=== PATIENT | female | born 1990 | race American Indian/Alaskan Native ===

== ENCOUNTER 2017-02-13 14:55 | Emergency (ER) | payer MEDICAID | END 2017-02-13 15:11 | disposition left against medical advice (07) | LOC: ED 14:55 | DX: R07.9 Chest pain, unspecified (principal); M54.9 Dorsalgia, unspecified; Z53.21 Procedure and treatment not carried out due to patient leaving prior to being seen by health care provider ==

== ENCOUNTER 2018-07-14 21:17 | Outpatient (CLI) | payer BC, MEDICAID ==
[2018-07-14 21:43] VITALS: BP 110/70
[2018-07-14] MEDS ORDERED: LACTATED RINGERS 1,000 ML IV ONE (22:18)
[2018-07-14] MEDS ORDERED: LACTATED RINGERS 500 ML IV SCH (23:00)
[2018-07-14 23:08] LABS: Bacteria,Urine 1+ /HPF (Negative); Bilirubin,Urine NEG (Negative); Blood,Urine NEG (Negative); Color,Urine Yellow (Yellow); Mucus,Urine FEW /HPF; Protein,Urine <15 mg/dL mg/dL (Negative)
--- NOTE | 2018-07-14 23:44 | Ultrasound Report ---
PROCEDURE: US OB LIMITED TECHNIQUE: Real-time limited sonographic examination was performed for evaluation of amniotic fluid index for each fetus with image documentation (1 or more fetuses). HISTORY: decrease movement COMPARISONS: None . FINDINGS: FETUS IUP: Single living intrauterine . Position: Cephalic . Placental position: Anterior, without previa . Amniotic fluid volume: Normal. Amniotic fluid index is 11.1 cm Heart rate and rhythm: 152 BPM, Regular . IMPRESSION: Amniotic fluid is within normal limits. This document is electronically signed by Joaquín Bauer MD., July 15 2018 12:42:24 AM ET
--- NOTE | 2018-07-14 23:45 | Ultrasound Report ---
PROCEDURE: US OB BPP WO NON-STRESS TECHNIQUE: Sonographic evaluation for breathing, movement, tone, and amniotic flui d volume was performed. HISTORY: decrease movement COMPARISONS: None . FINDINGS: FETUS Amniotic fluid volume Normal-score 2. At least one vertical pocket >2 cm or more in vertical axis . breathing: Normal-score 2 . movement: Normal-score 2 . tone: Normal-score 2 . Score: 8 of 8 . heart rate is 152 bpm IMPRESSION: Normal biophysical profile . This document is electronically signed by Joaquín Bauer MD., July 15 2018 12:43:05 AM ET
== END 2018-07-14 23:45 | disposition home or self-care (01) ==
LOC: TRG 21:17
PROVIDERS: ATTEND Obstetrics & Gynecology
DX: O47.03 False labor before 37 completed weeks of gestation, third trimester (principal); Z3A.35 35 weeks gestation of pregnancy
CPT/HCPCS: 59025; 76815; 76819; 81001; 87086

== ENCOUNTER 2018-08-10 20:04 | Outpatient (CLI) | payer BC, MEDICAID ==
[2018-08-10 20:28] VITALS: BP 118/68
--- NOTE | 2018-08-11 00:54 | Ultrasound Report ---
PROCEDURE: Limited obstetrical ultrasound. TECHNIQUE: Limited transabdominal imaging was performed. HISTORY: , evaluate amniotic fluid volume. COMPARISONS: Limited abdominal ultrasound 07/14/2018. FINDINGS: There is a single viable fetus in cephalic presentation. Cardiac activity is documented at 150 bpm. T he amniotic fluid volume appears normal. The amniotic fluid index measures 16.8 cm. IMPRESSION: Normal appearing amniotic fluid volume. Viable fetus. This document is electronically signed by Ambrose Mcdowell MD., August 11 2018 12:52:15 AM ET
--- NOTE | 2018-08-11 00:55 | Ultrasound Report ---
PROCEDURE: Ultrasound biophysical profile without nonstress test. TECHNIQUE: Sonographic evaluation for breathing, movement, tone, and amniotic flui d volume was performed. HISTORY: BPP COMPARISONS: None. FINDINGS: FETUS Amniotic fluid volume 2 . breathin . movement: 2 . tone: 2 . Score: 8 of 8 . IMPRESSION: Normal biophysical profile . This document is electronically signed by Ambrose Mcdowell MD., August 11 2018 12:53:51 AM ET
--- NOTE | 2018-08-11 06:11 | Progress Note ---
Assessment and Plan A: at 39 3/7 weeks gestation. Not in active labor. Reactive NST and normal BPP and normal JAMA. P: Discharge patient home. Advised pt. to perform daily movement counting. Advised patient to keep her follow up appointment at [facility] this week. Subjective - Subjective Date of service: 08/10/18 Principal diagnosis: Vaginal pressure; rule out labor at 39 3/7 weeks Interval history: 28 year old female presents to L&D with complaint of intermittent vaginal pressure and occasional contractions. Patient denies vaginal bleeding or leaking of water. Patient reports active movement. Patient receives care at [facility] and states she has a follow up appointment scheduled for this week. Patient reports: movement normal, contractions, no loss of fluid, no vaginal bleeding Objective - Vital Signs Vital Signs: Vital Signs - 12hr 08/10/18 08/10/18 08/10/18 20:25 20:28 20:33 Temperature 98.5 F Pulse Rate 97 H 99 H 90 Respiratory 18 Rate Blood Pressure 118/68 [Left] O2 Sat by Pulse 97 96 97 Oximetry 08/10/18 08/10/18 23:49 23:54 Temperature Pulse Rate 98 H 90 Respiratory Rate Blood Pressure [Left] O2 Sat by Pulse 100 96 Oximetry - Exam Narrative Exam: Normal JAMA. BPP 8/8. Abdomen: Present: normal appearance, soft. Absent: distention, tenderness, guarding, rigidity Uterus: Present: normal, fundal height above umbilicus. Absent: tenderness FHR: category 1 Uterine Contraction Monitor Mode: External Cervical Dilatation: 0.5 Cervical Effacement Percentage: 50 station: 0 Uterine Contraction Pattern: Irregular Uterine Contraction Intensity: Mild Extremities: normal
== END 2018-08-10 23:00 | disposition home or self-care (01) ==
LOC: TRG 20:04
PROVIDERS: ATTEND Obstetrics & Gynecology
DX: O26.893 Other specified pregnancy related conditions, third trimester (principal); R10.2 Pelvic and perineal pain; Z3A.39 39 weeks gestation of pregnancy
CPT/HCPCS: 76815; 76819

== ENCOUNTER 2018-08-17 13:10 | Inpatient (IN) | payer BC, MEDICAID ==
--- NOTE | 2018-08-17 15:43 | Ultrasound Report ---
Limited biophysical profile ultrasound HISTORY: BPP. Evaluate well-being. TECHNIQUE: Grayscale and color Doppler imaging performed. COMPARISON: 08/10/2018 FINDINGS: The fetus received a score of 2 for breathing, movements, posterior, and JAMA. Total score was 8 out of 8. IMPRESSION: Normal biophysical profile. Signer Name: Roman Marrufo MD Signed: 08/17/2018 3:39 PM Workstation Name: [id number]
--- NOTE | 2018-08-17 15:52 | Ultrasound Report ---
Limited OB Ultrasound HISTORY: JAMA. Patient reportedly beyond her due date, here to evaluate JAMA TECHNIQUE: Grayscale and color Doppler imaging performed. COMPARISON: BPP from today FINDINGS: Four quadrants were evaluated. The JAMA is 9.5. Aside from the limited BPP, the fetus was not at all evaluated. IMPRESSION: JAMA of 9.5 on this very limited exam. Signer Name: Roman Marrufo MD Signed: 08/17/2018 3:48 PM Workstation Name: [id number]
[2018-08-17] MEDS ORDERED: BRETHINE SUB-Q PRN (18:41)
[2018-08-17] MEDS ORDERED: XYLOCAINE 2% INFILTRATI ONE ×2 (18:41→20:58)
--- NOTE | 2018-08-17 18:51 | History and Physical Report ---
History of Present Illness Date of examination: 08/17/18 Date of admission: 08/17/18 16:43 Chief complaint: Contractions History of present illness: 28 year old female presents to L&D with contractions. Patient denies leaking of fluid or vaginal bleeding. Patient reports decrease in movements for the past 2 days. Patient received care from [facility] and records are available. LMP 11/08/17. EDC 08/15/18. 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 labs are as follows: A+, antibody screen negative, rubella immune, RPR nonreactive, hepatitis B surface antigen negative, HIV negative, gonorrhea negative, chlamydia negative, trichomonas negative, quad screen negative, 1 hour sugar test 109, GBS negative. Past History Past Medical History: no pertinent history Past Surgical History: no surgical history [employer] History: herpes. denies: abnormal PAP smear, chlamydia, gonorrhea, hepatitis B, hepatitis C, HIV, syphilis, trichomonas Family/Genetic History: hypertension, other (migraine) Social history: single, lives with family, full code. denies: smoking, alcohol abuse, prescription drug abuse, IV drug use - Obstetrical History Expected Date of Delivery: 08/15/18 Actual Gestation: 40 Week(s) 2 Day(s) : 4 Para: 2 Hx # Term Pregnancies: 2 Number of Pregnancies: 0 Spontaneous Abortions: 1 Induced : 0 Number of Living Children: 2 Medications and Allergies Allergies Allergy/AdvReac Type Severity Reaction Status Date / Time No Known Allergies Allergy Unverified 09/01/15 21:21 Home Medications Medication Instructions Recorded Confirmed Last Taken Type valACYclovir [Valtrex] 1 tab PO DAILY 08/10/18 08/10/18 08/10/18 History One Daily Tablet 1 PO QDAY 08/17/18 08/17/18 18:43 History Review of Systems All systems: negative (contractions) - Vital Signs Vital signs: Vital Signs Pulse BP 93 H 112/70 08/17/18 13:30 08/17/18 13:30 Temp Pulse Resp BP Pulse Ox 97.0 F L 86 115/69 08/17/18 17:41 08/17/18 17:41 08/17/18 17:35 - Physical Exam Abdomen: Positive: normal appearance, soft. Negative: distention, tenderness, guarding, rigidity Genitourinary (Female): Positive: normal external genitalia, normal perenium. Negative: perineal/vulvar lesions Vagina: Positive: normal moisture Uterus: Positive: enlarged. Negative: tender Anus/Rectum: Positive: normal perianal skin Extremities: Positive: normal. Negative: tenderness, edema - Obstetrical FHR: category 1 Uterine Contraction Monitor Mode: External Cervical Dilatation: 4.5 Cervical Effacement Percentage: 70 station: -1 Uterine Contraction Pattern: Regular Uterine Contraction Intensity: Mild Results All other labs normal. Assessment and Plan A: at 40 weeks, 2 days gestation. Labor. GBS negative. HSV 2 positive serology (with no lesions or prodromal symptoms). P: Admit. EFM. Continue Valtrex suppression of HSV.
[2018-08-17 18:56] LABS: Hematocrit 32.5 % (30.3-42.9); Hemoglobin 11.3 gm/dl (10.1-14.3); Mean Corpuscular HGB Conc 35 % (30-34); Mean Corpuscular Volume 91 fl (79-97); Platelet Count 172 K/mm3 (140-440); Red Blood Count 3.55 M/mm3 (3.65-5.03); Red Cell Distribution Width 15.1 % (13.2-15.2)
[2018-08-17] MEDS ORDERED: PITOCin/NS 20 UNIT/1000ML DRIP 20 UNITS/1,000 ML BAG IV SCH (19:00)
[2018-08-17] MEDS ORDERED: PITOCin/NS 30 UNIT/500ML 30 UNITS/500 ML BAG IV SCH ×2 (21:00)
[2018-08-17] MEDS: LACTATED RINGERS 1,000 ML IV SCH (21:27)
[2018-08-17] MEDS: VALTREX PO SCH (22:00)
[2018-08-17] MEDS: SUBLIMAZE IV PRN (23:16)
[2018-08-18] MEDS: LACTATED RINGERS 1,000 ML IV SCH ×4 (05:01→12:54)
[2018-08-18] MEDS: SUBLIMAZE IV PRN (09:27)
[2018-08-18] MEDS: VALTREX PO SCH (09:27)
--- NOTE | 2018-08-18 12:23 | Anesthesia Consultation ---
Anesthesia Consult and Med Hx Date of service: 08/18/18 - Airway Anesthetic Teeth Evaluation: Good ROM Head & Neck: Adequate Mental/Hyoid Distance: Adequate Mallampati Class: Class II Intubation Access Assessment: Probably Good - Pre-Operative Health Status ASA Pre-Surgery Classification: ASA2 Proposed Anesthetic Plan: Epidural, Spinal - Pulmonary Hx Asthma: No COPD: No Hx Pneumonia: No - Cardiovascular System Hx Hypertension: No - Central Nervous System Hx Seizures: No Hx Psychiatric Problems: No - Endocrine Hx Renal Disease: No Hx End Stage Renal Disease: No Hx Hypothyroidism: No Hx Hyperthyroidism: No - Hematic Hx Anemia: No Hx Sickle Cell Disease: No - Other Systems Hx Alcohol Use: No
[2018-08-18] MEDS ORDERED: fentaNYL-BUPIV 2 MCG/ML-0.125% 200 MCG/100 ML BAG EPIDURAL SCH (13:00)
[2018-08-18] MEDS ORDERED: NARCAN 2 MG/2 ML IV PRN (13:00)
--- NOTE | 2018-08-18 14:04 | Progress Note ---
Assessment and Plan - Patient Problems (1) 40 weeks gestation of Current Visit: Yes Status: Acute (2) Active labor at term Current Visit: Yes Status: Acute Plan to address problem: Continue current management Continue oxytocin for labor augmentation AROM @ 13:55, clear fluid, small amount Subjective - Subjective Date of service: 08/18/18 Principal diagnosis: IUP @ 40 weeks 3 days; Active Labor Interval history: see H&P Patient reports: movement normal, contractions, other (Epidural in place), no loss of fluid, no vaginal bleeding Objective - Vital Signs Vital Signs: Vital Signs - 12hr 08/18/18 08/18/18 08/18/18 02:02 02:32 03:01 Temperature Pulse Rate 89 76 71 Respiratory Rate Blood Pressure 108/63 104/60 Blood Pressure [Right] O2 Sat by Pulse 97 Oximetry 08/18/18 08/18/18 08/18/18 03:04 03:06 03:11 Temperature Pulse Rate 67 71 75 Respiratory Rate Blood Pressure 98/53 Blood Pressure [Right] O2 Sat by Pulse 96 97 Oximetry 08/18/18 08/18/18 08/18/18 03:16 03:21 03:26 Temperature Pulse Rate 75 75 70 Respiratory Rate Blood Pressure Blood Pressure [Right] O2 Sat by Pulse 96 96 96 Oximetry 08/18/18 08/18/18 08/18/18 03:31 03:32 03:36 Temperature Pulse Rate 84 80 72 Respiratory Rate Blood Pressure 94/52 Blood Pressure [Right] O2 Sat by Pulse 96 95 Oximetry 08/18/18 08/18/18 08/18/18 03:41 03:46 03:51 Temperature Pulse Rate 77 75 74 Respiratory Rate Blood Pressure Blood Pressure [Right] O2 Sat by Pulse 95 95 96 Oximetry 08/18/18 08/18/18 08/18/18 03:56 04:01 04:02 Temperature Pulse Rate 72 80 77 Respiratory Rate Blood Pressure 97/55 Blood Pressure [Right] O2 Sat by Pulse 95 95 Oximetry 08/18/18 08/18/18 08/18/18 04:06 04:11 04:13 Temperature Pulse Rate 69 81 77 Respiratory Rate Blood Pressure Blood Pressure [Right] O2 Sat by Pulse 96 95 94 Oximetry 08/18/18 08/18/18 08/18/18 04:16 04:19 04:21 Temperature Pulse Rate 74 67 74 Respiratory Rate Blood Pressure Blood Pressure [Right] O2 Sat by Pulse 95 94 94 Oximetry 08/18/18 08/18/18 08/18/18 04:24 04:26 04:29 Temperature Pulse Rate 85 77 85 Respiratory Rate Blood Pressure Blood Pressure [Right] O2 Sat by Pulse 94 94 94 Oximetry 08/18/18 08/18/18 08/18/18 04:31 04:33 04:35 Temperature Pulse Rate 72 78 82 Respiratory Rate Blood Pressure 89/51 Blood Pressure [Right] O2 Sat by Pulse 94 94 Oximetry 08/18/18 08/18/18 08/18/18 04:36 04:41 04:46 Temperature Pulse Rate 81 90 82 Respiratory Rate Blood Pressure Blood Pressure [Right] O2 Sat by Pulse 94 95 95 Oximetry 08/18/18 08/18/18 08/18/18 04:49 04:51 04:54 Temperature Pulse Rate 87 87 87 Respiratory Rate Blood Pressure Blood Pressure [Right] O2 Sat by Pulse 94 95 94 Oximetry 08/18/18 08/18/18 08/18/18 04:56 05:02 07:15 Temperature Pulse Rate 76 75 79 Respiratory Rate Blood Pressure 97/52 Blood Pressure [Right] O2 Sat by Pulse 95 97 Oximetry 08/18/18 08/18/18 08/18/18 07:20 07:25 07:30 Temperature Pulse Rate 90 75 81 Respiratory Rate Blood Pressure Blood Pressure [Right] O2 Sat by Pulse 96 96 96 Oximetry 08/18/18 08/18/18 08/18/18 07:35 07:40 07:45 Temperature Pulse Rate 80 84 82 Respiratory Rate Blood Pressure Blood Pressure [Right] O2 Sat by Pulse 97 97 96 Oximetry 08/18/18 08/18/18 08/18/18 07:49 07:50 07:55 Temperature 96.7 F L Pulse Rate 71 76 75 Respiratory 18 Rate Blood Pressure 106/66 Blood Pressure 106/66 [Right] O2 Sat by Pulse 97 97 Oximetry 08/18/18 08/18/18 08/18/18 08:00 08:05 08:12 Temperature Pulse Rate 80 71 80 Respiratory Rate Blood Pressure Blood Pressure [Right] O2 Sat by Pulse 96 96 98 Oximetry 08/18/18 08/18/18 08/18/18 08:17 08:19 08:22 Temperature Pulse Rate 76 73 67 Respiratory Rate Blood Pressure 108/67 Blood Pressure [Right] O2 Sat by Pulse 98 97 Oximetry 08/18/18 08/18/18 08/18/18 08:27 08:32 08:37 Temperature Pulse Rate 73 72 72 Respiratory Rate Blood Pressure Blood Pressure [Right] O2 Sat by Pulse 97 97 97 Oximetry 08/18/18 08/18/18 08/18/18 08:42 08:47 08:49 Temperature Pulse Rate 65 71 68 Respiratory Rate Blood Pressure 101/60 Blood Pressure [Right] O2 Sat by Pulse 97 96 Oximetry 08/18/18 08/18/18 08/18/18 08:52 08:57 09:02 Temperature Pulse Rate 68 74 75 Respiratory Rate Blood Pressure Blood Pressure [Right] O2 Sat by Pulse 97 96 96 Oximetry 08/18/18 08/18/18 08/18/18 09:07 09:12 09:17 Temperature Pulse Rate 79 86 83 Respiratory Rate Blood Pressure Blood Pressure [Right] O2 Sat by Pulse 97 96 96 Oximetry 08/18/18 08/18/18 08/18/18 09:19 09:20 09:22 Temperature Pulse Rate 83 77 78 Respiratory Rate Blood Pressure 109/70 110/71 Blood Pressure [Right] O2 Sat by Pulse 98 Oximetry 08/18/18 08/18/18 08/18/18 09:27 09:49 10:19 Temperature Pulse Rate 71 71 Respiratory 18 Rate Blood Pressure 107/68 102/59 Blood Pressure [Right] O2 Sat by Pulse Oximetry 08/18/18 08/18/18 08/18/18 10:49 11:19 12:00 Temperature 97.2 F L Pulse Rate 78 78 78 Respiratory 20 Rate Blood Pressure 99/64 107/70 107/63 Blood Pressure 107/63 [Right] O2 Sat by Pulse 100 Oximetry 08/18/18 08/18/18 08/18/18 12:01 12:06 12:11 Temperature Pulse Rate 76 80 79 Respiratory Rate Blood Pressure Blood Pressure [Right] O2 Sat by Pulse 99 100 100 Oximetry 08/18/18 08/18/18 08/18/18 12:16 12:35 12:37 Temperature Pulse Rate 83 79 80 Respiratory Rate Blood Pressure 104/58 105/59 Blood Pressure [Right] O2 Sat by Pulse 99 100 Oximetry 08/18/18 08/18/18 08/18/18 12:39 12:40 12:41 Temperature Pulse Rate 83 66 71 Respiratory Rate Blood Pressure 115/73 118/73 Blood Pressure [Right] O2 Sat by Pulse 99 Oximetry 08/18/18 08/18/18 08/18/18 12:43 12:45 12:46 Temperature 96.4 F L Pulse Rate 78 86 72 Respiratory 18 Rate Blood Pressure 109/70 103/69 Blood Pressure 109/70 [Right] O2 Sat by Pulse 100 99 Oximetry 08/18/18 08/18/18 08/18/18 12:47 12:49 12:51 Temperature Pulse Rate 81 82 82 Respiratory Rate Blood Pressure 107/70 102/66 105/64 Blood Pressure [Right] O2 Sat by Pulse 99 Oximetry 08/18/18 08/18/18 08/18/18 12:53 12:55 12:56 Temperature Pulse Rate 75 76 80 Respiratory Rate Blood Pressure 102/63 103/64 Blood Pressure [Right] O2 Sat by Pulse 98 Oximetry 08/18/18 08/18/18 08/18/18 12:57 12:59 13:01 Temperature Pulse Rate 73 78 74 Respiratory Rate Blood Pressure 102/61 101/59 104/62 Blood Pressure [Right] O2 Sat by Pulse 98 Oximetry 08/18/18 08/18/18 08/18/18 13:03 13:05 13:06 Temperature Pulse Rate 77 68 75 Respiratory Rate Blood Pressure 103/63 104/62 Blood Pressure [Right] O2 Sat by Pulse 99 Oximetry 08/18/18 08/18/18 08/18/18 13:07 13:09 13:11 Temperature Pulse Rate 75 68 76 Respiratory Rate Blood Pressure 103/63 105/63 103/62 Blood Pressure [Right] O2 Sat by Pulse Oximetry 08/18/18 08/18/18 08/18/18 13:12 13:13 13:15 Temperature Pulse Rate 72 78 69 Respiratory Rate Blood Pressure 105/67 103/66 Blood Pressure [Right] O2 Sat by Pulse 98 Oximetry 08/18/18 08/18/18 08/18/18 13:17 13:18 13:19 Temperature Pulse Rate 76 70 66 Respiratory Rate Blood Pressure 99/62 97/60 Blood Pressure [Right] O2 Sat by Pulse 98 Oximetry 08/18/18 08/18/18 08/18/18 13:21 13:23 13:24 Temperature Pulse Rate 68 71 79 Respiratory Rate Blood Pressure 98/58 105/64 Blood Pressure [Right] O2 Sat by Pulse 97 93 Oximetry 08/18/18 08/18/18 08/18/18 13:25 13:27 13:28 Temperature Pulse Rate 71 64 68 Respiratory Rate Blood Pressure 103/64 106/63 Blood Pressure [Right] O2 Sat by Pulse 99 Oximetry 08/18/18 08/18/18 08/18/18 13:29 13:31 13:33 Temperature Pulse Rate 78 64 69 Respiratory Rate Blood Pressure 103/63 106/64 111/69 Blood Pressure [Right] O2 Sat by Pulse 99 Oximetry 08/18/18 08/18/18 08/18/18 13:35 13:37 13:38 Temperature Pulse Rate 64 66 69 Respiratory Rate Blood Pressure 108/68 107/65 Blood Pressure [Right] O2 Sat by Pulse 99 Oximetry 08/18/18 08/18/18 13:39 13:55 Temperature Pulse Rate 72 73 Respiratory Rate Blood Pressure 109/67 116/73 Blood Pressure [Right] O2 Sat by Pulse Oximetry - Exam FHR: auscultation normal, category 2 FHR comments: baseline 130, moderate variability, 15x15 accels, variable/early decels Uterine Contraction Monitor Mode: External Cervical Dilatation: 6 Cervical Effacement Percentage: 90 station: -1 Uterine Contraction Frequency (min): 2-4 Uterine Contraction Pattern: Regular - Labs Labs: Abnormal Labs 08/17/18 18:15 RBC 3.55 L MCHC 35 H Laboratory Results - last 24 hr 08/17/18 08/17/18 18:15 18:15 WBC 7.2 RBC 3.55 L Hgb 11.3 Hct 32.5 MCV 91 MCH 32 MCHC 35 H RDW 15.1 Plt Count 172 Blood Type A POSITIVE Antibody Screen Negative
--- NOTE | 2018-08-18 15:24 | Procedure Note ---
OB Delivery Note - Delivery Date of Delivery: 08/18/18 (15:06) Surgeon: DELIA RIZZO (AIDE) Estimated blood loss: 100cc - Vaginal Delivery presentation: vertex Delivery position: OA Intrapartum events: none Delivery induction: none Delivery augmentation: rupture of membranes (AROM @ 13:55), pitocin Delivery monitor: external FHT, external uterine Route of delivery: (15:06) Delivery placenta: spontaneous (15:13) Delivery cord: 3 umbilical vessels Episiotomy: none Delivery laceration: none Anesthesia: intravenous, epidural Delivery comments: of a vigorous term 7 lbs 10 oz male infant on 08/18/18 @ 15:06. Baby placed [id number] on maternal abdomen. After 3 mins, umbilical cord double-clamped by AIDE Rizzo and cut by FOB. Spontanoeus delivery of placenta, Lidia-side presenting, @ 15:13. Small lochia present. Placenta intact; was discarded. Perineum intact. No lacerations present. Mom and baby in stable condition. - A at 1 minute: 8 at 5 minutes: 9 Infant Gender: Male (7 lbs 10 oz (3466 gm); 19 in)
[2018-08-18] MEDS ORDERED: PHENERGAN PO PRN (15:25)
[2018-08-18] MEDS ORDERED: ZOFRAN IV PRN (15:25)
[2018-08-18] MEDS ORDERED: LANSINOH TP PRN (15:25)
[2018-08-18] MEDS ORDERED: TUCKS PAD TP PRN (15:25)
[2018-08-18] MEDS ORDERED: DULCOLAX PR PRN (15:25)
[2018-08-18] MEDS ORDERED: TYLENOL PO PRN (15:25)
[2018-08-18] MEDS ORDERED: PHENERGAN PR PRN (15:25)
[2018-08-18] MEDS ORDERED: BENADRYL PO PRN (15:25)
[2018-08-18] MEDS ORDERED: MILK OF MAGNESIA PO PRN (15:25)
[2018-08-18] MEDS ORDERED: IBUPROFEN PO SCH (16:00)
[2018-08-18] MEDS ORDERED: SODIUM CHLORIDE FLUSH SYRINGE 10 ML IV NR (16:00)
[2018-08-18] MEDS: IBUPROFEN PO SCH (20:13)
[2018-08-18] MEDS: NORCO 5/325 PO PRN (20:56)
[2018-08-19] MEDS: IBUPROFEN PO SCH ×3 (04:00→20:22)
[2018-08-19 05:46] LABS: Hematocrit 29.8 % (30.3-42.9)
[2018-08-19] MEDS: NORCO 5/325 PO PRN (09:45)
--- NOTE | 2018-08-19 09:51 | Progress Note ---
Assessment and Plan - Patient Problems (1) (normal spontaneous vaginal delivery) Current Visit: Yes Status: Acute Plan to address problem: D/C home later today, as long as infant is ok'd for D/C (2) Anemia Current Visit: Yes Status: Acute Qualifiers: Anemia type: other cause Other causes of anemia: acute posthemorrhagic Qualified Code(s): D62 - Acute posthemorrhagic anemia Plan to address problem: Continue daily oral iron supplementation Iron rich diet Subjective - Subjective Date of service: 08/19/18 Principal diagnosis: Interval history: See admission H & P, OB delivery summary and PP progress notes Patient reports: appetite normal, voiding normally, pain well controlled, flatus, ambulating normally, no bowel movement [place]: doing well, other () Objective - Vital Signs Latest vital signs: Vital Signs Temp Pulse Resp BP BP Pulse Ox 08/19/18 08:17 97.5 F L 64 18 96/57 97 08/19/18 05:32 98.1 F 70 20 100/55 97 08/19/18 02:05 98.3 F 88 20 104/57 95 08/18/18 18:50 98.1 F 58 L 142/60 98 08/18/18 16:40 75 125/74 08/18/18 16:25 76 117/66 08/18/18 16:19 97.4 F L 08/18/18 16:10 76 109/61 08/18/18 15:55 82 113/61 08/18/18 15:41 80 122/67 08/18/18 15:25 94 H 109/65 08/18/18 15:10 83 106/62 08/18/18 15:08 80 100 08/18/18 15:04 78 84 08/18/18 15:03 88 100 08/18/18 14:55 74 109/57 08/18/18 14:45 97.7 F 08/18/18 14:42 67 108/56 08/18/18 14:25 83 99/57 08/18/18 14:12 76 103/69 08/18/18 13:55 73 116/73 08/18/18 13:39 72 109/67 08/18/18 13:38 69 99 08/18/18 13:37 66 107/65 08/18/18 13:35 64 108/68 08/18/18 13:33 69 111/69 99 08 13:31 64 106/64 08/18/18 13:29 78 103/63 08/18/18 13:28 68 99 08/18/18 13:27 64 106/63 08/18/18 13:25 71 103/64 08/18/18 13:24 79 105/64 93 08/18/18 13:23 71 97 08/18/18 13:21 68 98/58 08/18/18 13:19 66 97/60 08/18/18 13:18 70 98 08/18/18 13:17 76 99/62 08/18/18 13:15 69 103/66 08/18/18 13:13 78 105/67 08/18/18 13:12 72 98 08/18/18 13:11 76 103/62 08/18/18 13:09 68 105/63 08/18/18 13:07 75 103/63 08/18/18 13:06 75 99 08/18/18 13:05 68 104/62 08/18/18 13:03 77 103/63 08/18/18 13:01 74 104/62 98 08/18/18 12:59 78 101/59 08/18/18 12:57 73 102/61 08/18/18 12:56 80 98 08/18/18 12:55 76 103/64 08/18/18 12:53 75 102/63 08/18/18 12:51 82 105/64 99 08/18/18 12:49 82 102/66 08/18/18 12:47 81 107/70 08/18/18 12:46 72 99 08/18/18 12:45 86 103/69 08/18/18 12:43 96.4 F L 78 18 109/70 109/70 100 08/18/18 12:41 71 118/73 08/18/18 12:40 66 99 08/18/18 12:39 83 115/73 08/18/18 12:37 80 105/59 08/18/18 12:35 79 104/58 100 08/18/18 12:16 83 99 08/18/18 12:11 79 100 08/18/18 12:06 80 100 08/18/18 12:01 76 99 08/18/18 12:00 97.2 F L 78 20 107/63 107/63 100 08/18/18 11:19 78 107/70 08/18/18 10:49 78 99/64 08/18/18 10:19 71 102/59 08/18/18 09:49 71 107/68 Intake and Output 08/18/18 08/19/18 08/19/18 23:59 07:59 15:59 Intake Total 360 240 Output Total 2100 Balance -1740 240 Intake: Oral 360 Intake, Free Water 240 Output: Urine 2100 Self-Catheterization 600 Void 1500 Other: Total, Intake Amount 360 Total, Output Amount 700 Voiding Method Toilet Toilet # Voids Void 1 - Exam Breasts: Present: normal Cardiovascular: Present: Regular rate Lungs: Present: Normal air movement Abdomen: Present: soft, normal bowel sounds Uterus: Present: firm, fundal height at umbilicus Extremities: Present: normal Deep Tendon Reflex Grade: Normal +2 - Labs Labs: Abnormal lab results 08/19/18 Range/Units 05:33 Hgb 10.0 L (10.1-14.3) gm/dl Hct 29.8 L (30.3-42.9) %
--- NOTE | 2018-08-19 09:58 | Discharge Summary ---
Providers - Providers Date of Admission: 08/17/18 16:43 Date of discharge: 08/19/18 (1700) Attending physician: CHRISTIANO KRAFT MD Primary care physician: CHRISTIANO KRAFT MD Hospitalization Reason for admission: active labor, IUP at term Delivery: Episiotomy: none Laceration: none Other procedures: none complications: none Discharge diagnosis: IUP at term delivered baby: male Hospital course: See admission H & P, OB delivery summary and PP progress notes Condition at discharge: Good Disposition: DC-01 TO HOME OR SELFCARE - Discharge Diagnoses (1) (normal spontaneous vaginal delivery) Status: Acute (2) Anemia Status: Acute Qualifiers: Anemia type: other cause Other causes of anemia: acute posthemorrhagic Qualified Code(s): D62 - Acute posthemorrhagic anemia Plan - Provider Discharge Summary Activity: routine, no sex for 6 weeks, no heavy lifting 4 weeks, no strenuous exercise Diet: other (Iron rich foods) Instructions: routine Additional instructions: [] Smoking cessation referral if applicable(refer to patient education folder for contact #) [] Refer to [facility] Booklet Call your doctor immediately for: * Fever > 100.5 * Heavy vaginal bleeding ( >1 pad per hour) * Severe persistent headache * Shortness of breath * Reddened, hot, painful area to leg or breast * Drainage or odor from incision. - Follow up plan Follow up: CHRISTIANO KRAFT MD [Primary Care Provider] - 6 Weeks Forms: [facility] Discharge Summary
[2018-08-19] MEDS ORDERED: PRENATAL VITAMIN PO SCH (10:00)
[2018-08-19] MEDS ORDERED: FEOSOL PO SCH (10:00)
[2018-08-19 22:58] VITALS: BP 118/75
== END 2018-08-19 21:05 | disposition home or self-care (01) | DRG 806 ==
LOC: TRG 13:10 → LD 16:43 → OB 08-18 18:26
PROVIDERS: ADMIT Obstetrics & Gynecology; ATTEND Obstetrics & Gynecology
PROC: 10E0XZZ Delivery of Products of Conception, External Approach (ICD-10-PCS; principal; 2018-08-18)
PROC: 10907ZC Drainage of Amniotic Fluid, Therapeutic from Products of Conception, Via Natural or Artificial Opening (ICD-10-PCS; 2018-08-18)
PROC: 3E0R3BZ Introduction of Anesthetic Agent into Spinal Canal, Percutaneous Approach (ICD-10-PCS; 2018-08-18)
PROC: 00HU33Z Insertion of Infusion Device into Spinal Canal, Percutaneous Approach (ICD-10-PCS; 2018-08-18)
DX: O98.52 Other viral diseases complicating childbirth (principal); D62 Acute posthemorrhagic anemia; Z37.0 Single live birth; B00.9 Herpesviral infection, unspecified; O99.02 Anemia complicating childbirth; Z3A.40 40 weeks gestation of pregnancy; Z82.49 Family history of ischemic heart disease and other diseases of the circulatory system
CPT/HCPCS: 36415; 76815; 76819; 85014; 85018; 85027; 86592; 86850; 86900; 86901; G0378; A6250; J2590; J3010; J7120

== ENCOUNTER 2019-11-23 15:54 | Emergency (ER) | payer BC, MEDICAID ==
[2019-11-23 16:45] VITALS: BP 121/81
== END 2019-11-23 18:30 | disposition left against medical advice (07) ==
LOC: ED 15:54
DX: D64.9 Anemia, unspecified (principal); Z53.21 Procedure and treatment not carried out due to patient leaving prior to being seen by health care provider

== ENCOUNTER 2020-10-05 22:45 | Outpatient (CLI) | payer BC, MEDICAID ==
[2020-10-05 23:03] VITALS: BP 115/68
--- NOTE | 2020-10-06 01:41 | Consultation ---
History of Present Illness - Reason for Consult Consult date: 10/06/20 Shortness of breath and tachycardia Requesting physician: PHONG CRAIG - History of Present Illness This is a 30-year-old femaleseen at bedside in the labor and delivery unit. Patient says she is 5 months . Patient says she came to the hospital because of shortness of breath and she feels her heart racing. Patient denies cough, chest pain, fatigue, fever, and generalized weakness. Patient reported that she felt stressed out during the day with subsequent shortness of breath and increasing heart rate. She denies a history of diabetes hypertension, and high cholesterol. She denies tobacco use, alcohol use, and illicit drug use. On assessment, patient is on room air with oxygen saturation 98 100%. Hospital medicine is consulted to see patient. Blood work ordered including inflammatory markers, CBC, CMP, mag and phosphate level, and troponin. We will follow-up with blood results. EKG is done and pelletizer is consulted to see patient. Past History Past Surgical History: No surgical history Social history: no significant social history Family history: other (Mother has heart disease) Medications and Allergies Allergies Allergy/AdvReac Type Severity Reaction Status Date / Time No Known Allergies Allergy Unverified 09/01/15 21:21 Home Medications Medication Instructions Recorded Confirmed Last Taken Type valACYclovir [Valtrex] 1 tab PO DAILY 08/10/18 08/18/18 08/10/18 History One Daily Tablet 1 PO QDAY 08/17/18 1 Day Ago History ~08/17/18 1 tab Review of Systems Constitutional: no fatigue, no weakness Ears, nose, mouth and throat: no epistaxis, no bleeding gums Cardiovascular: rapid/irregular heart beat, shortness of breath Gastrointestinal: no melena Rectal: no itching, no hemorrhoids Integumentary: no rash, no pruritis Psychiatric: anxiety, no disorientation Hematologic/Lymphatic: no easy bruising, no easy bleeding Allergic/Immunologic: no urticaria Exam - Constitutional Vitals: Temp Pulse Resp BP Pulse Ox 98.8 F 97 H 115/68 98 10/06/20 00:35 10/06/20 01:27 10/05/20 23:02 10/06/20 01:27 General appearance: Present: no acute distress, well-nourished - EENT Eyes: Present: PERRL ENT: hearing intact, clear oral mucosa - Neck Neck: Present: supple, normal ROM - Respiratory Respiratory effort: normal Respiratory: bilateral: CTA - Cardiovascular Heart rate: 115 Heart Sounds: Present: S1 & S2. Absent: rub, click - Extremities Extremities: pulses symmetrical, No edema Peripheral Pulses: within normal limits - Abdominal General gastrointestinal: Present: soft, non-tender, non-distended, normal bowel sounds Female genitourinary: Present: normal - Integumentary Integumentary: Present: clear, warm, dry - Musculoskeletal Musculoskeletal: gait normal, strength equal bilaterally - Psychiatric Psychiatric: appropriate mood/affect, intact judgment & insight, cooperative - Neurologic Neurologic: CNII-XII intact, moves all extremities - Allied Health Allied health notes reviewed: nursing Results - Labs CBC & Chem 7: 10/06/20 01:33 10/06/20 01:33 Assessment and Plan - Patient Problems (1) Shortness of breath Current Visit: Yes Status: Acute Plan to address problem: Questionable cause Patient reported anxiety. Patient is on room air with oxygen saturation 98 to 100%. (2) Tachycardia Current Visit: Yes Status: Acute Plan to address problem: Monitor vital signs including heart rate EKG and pelletizer consulted for further care management Blood work orderedreviewed lab workall inflammatory markers are normal Mild elevation of D-dimerpatient is Vital sign presently stable. (3) 20 or more weeks gestation of Current Visit: Yes Status: Acute Plan to address problem: Patient is followed by [facility]
[2020-10-06 01:51] LABS: Basophils % (Auto) 0.1 % (0.0-1.8); Eosinophils # (Auto) 0.1 K/mm3 (0.0-0.4); Eosinophils % (Auto) 1.2 % (0.0-4.3); Hematocrit 31.4 % (30.3-42.9); Hemoglobin 11.1 gm/dl (10.1-14.3); Lymphocytes # (Auto) 2.8 K/mm3 (1.2-5.4); Lymphocytes % (Auto) 23.9 % (13.4-35.0); Mean Corpuscular HGB Conc 35 % (30-34); Mean Corpuscular Volume 85 fl (79-97); Monocytes # (Auto) 0.9 K/mm3 (0.0-0.8); Monocytes % (Auto) 7.8 % (0.0-7.3); Platelet Count 203 K/mm3 (140-440); Red Blood Count 3.67 M/mm3 (3.65-5.03); Red Cell Distribution Width 14.6 % (13.2-15.2)
[2020-10-06 02:19] LABS: Alanine Aminotransferase 12 units/L (7-56); Albumin 3.5 g/dL (3.9-5); Blood Urea Nitrogen 5 mg/dL (7-17); Calcium 8.5 mg/dL (8.4-10.2); Hemolysis Index 3
[2020-10-06 02:24] LABS: BUN/Creatinine Ratio 8
--- NOTE | 2020-10-06 11:15 | Electrocardiograph Report ---
[facility] Test Date: 2020-10-06 Test Time: 00:19:47 Pat Name: SATURNINO AUGUSTIN Department: Room: Gender: F [employer] Man: Chavez MATTHEWS : 1990 Requested By: PHONG CRAIG Order Number: [id number] Reading MD: Berhane Chaparro Measurements Intervals [place] Rate: 78 P: 3 DE: 137 QRS: 31 QRSD: 89 T: 19 QT: 376 QTc: 429 Interpretive Statements Sinus rhythm Atrial premature complexes Low voltage, precordial leads No previous ECG available for comparison Electronically Signed On 10-06-2020 11:14:48 EDT by Berhane Chaparro
== END 2020-10-06 03:38 | disposition home or self-care (01) ==
LOC: TRG 22:45 → APU 22:46 → TRG 10-06 03:38
DX: Z34.92 Encounter for supervision of normal pregnancy, unspecified, second trimester (principal); A02.2 Localized salmonella infections; A69.1 Other Vincent's infections; A03.8 Other shigellosis; Z3A.27 27 weeks gestation of pregnancy
CPT/HCPCS: 36415; 59025; 80053; 82728; 83735; 84100; 84443; 84484; 85025; 85379; 86140; 93005

== ENCOUNTER 2020-11-14 08:58 | Outpatient (CLI) | payer MEDICAID ==
[2020-11-14 09:51] VITALS: BP 110/72
[2020-11-14] MEDS ORDERED: LACTATED RINGERS 500 ML IV ONE (10:09)
[2020-11-14] MEDS ORDERED: HYDROcodone/ACETAMINOPHEN 7.5-325MG TAB PO SCH (11:30)
[2020-11-14 11:48] LABS: Bilirubin,Urine NEG (Negative); Blood,Urine NEG (Negative); Color,Urine Straw (Yellow); Mucus,Urine FEW /HPF; Protein,Urine <15 mg/dL mg/dL (Negative); RBC,Urine < 1.0 /HPF (0.0-6.0); Urobilinogen,Urine < 2.0 mg/dL (<2.0)
== END 2020-11-14 12:41 | disposition home or self-care (01) ==
LOC: TRG 08:58 → APU 09:00 → TRG 12:41
PROVIDERS: ATTEND Obstetrics & Gynecology
DX: Z34.93 Encounter for supervision of normal pregnancy, unspecified, third trimester (principal); Z3A.31 31 weeks gestation of pregnancy
CPT/HCPCS: 59025; 81001; J7120

== ENCOUNTER 2021-06-02 17:43 | Emergency (ER) | payer MEDICAID ==
[2021-06-02 18:30] VITALS: BP 124/85
--- NOTE | 2021-06-02 19:05 | Emergency Department Report ---
ED ENT HPI - General Chief complaint: Sore Throat Stated complaint: SORE THROAT Time Seen by Provider: 06/02/21 18:23 Source: patient Mode of arrival: Ambulatory Limitations: No Limitations - History of Present Illness Initial comments: 31-year-old black female with no past medical history presents to the emergency department for evaluation of 2 to 3-day history of sore throat. States that she has also had runny nose and congestion but denies fever, shortness of breath, and chest pain. She denies any sick contacts. MD complaint: sore throat -: Gradual, days(s) (2-3) Severity: moderate Severity scale (0 -10): 5 Quality: aching Consistency: intermittent Worsens with: swallowing Associated Symptoms: cough, pain with swallowing, sore throat, rhinorrhea. denies: fever, gum swelling, toothache, tinnitus, hearing loss, discharge from ear - Related Data Home Medications Medication Instructions Recorded Confirmed Last Taken valACYclovir [Valtrex] 1 tab PO DAILY 08/10/18 06/02/21 08/10/18 One Daily Tablet 1 caplet PO QDAY 08/17/18 06/02/21 1 Day Ago ~08/17/18 1 tab Allergies Allergy/AdvReac Type Severity Reaction Status Date / Time No Known Allergies Allergy Verified 06/02/21 18:31 ED Dental HPI - General Chief complaint: Sore Throat Stated complaint: SORE THROAT Time Seen by Provider: 06/02/21 18:23 Source: patient Mode of arrival: Ambulatory Limitations: No Limitations - Related Data Home Medications Medication Instructions Recorded Confirmed Last Taken valACYclovir [Valtrex] 1 tab PO DAILY 08/10/18 06/02/21 08/10/18 One Daily Tablet 1 caplet PO QDAY 08/17/18 06/02/21 1 Day Ago ~08/17/18 1 tab Allergies Allergy/AdvReac Type Severity Reaction Status Date / Time No Known Allergies Allergy Verified 06/02/21 18:31 ED Review of Systems ROS: Stated complaint: SORE THROAT Other details as noted in HPI Comment: All other systems reviewed and negative Constitutional: denies: chills, fever Eyes: denies: eye pain, eye discharge ENT: throat pain, congestion. denies: dental pain Respiratory: cough. denies: shortness of breath, SOB with exertion, SOB at rest, wheezing Cardiovascular: denies: chest pain, palpitations Gastrointestinal: denies: abdominal pain, nausea, vomiting Musculoskeletal: denies: back pain Neurological: headache. denies: weakness, numbness, paresthesias, abnormal gait ED Past Medical Hx - Past Medical History Hx Hypertension: No Hx Heart Attack/AMI: No Hx Congestive Heart Failure: No Hx Diabetes: No Hx Deep Vein Thrombosis: No Hx Liver Disease: No Hx Renal Disease: No Hx Sickle Cell Disease: No Hx Seizures: No Hx Asthma: No Hx COPD: No Hx HIV: No - Social History Smoking Status: Never Smoker Substance Use Type: None - Medications Home Medications: Home Medications Medication Instructions Recorded Confirmed Last Taken Type valACYclovir [Valtrex] 1 tab PO DAILY 08/10/18 06/02/21 08/10/18 History One Daily Tablet 1 caplet PO QDAY 08/17/18 06/02/21 1 Day Ago History ~08/17/18 1 tab ED Physical Exam - General Limitations: No Limitations General appearance: alert, in no apparent distress - Head Head exam: Present: atraumatic, normocephalic - Eye Eye exam: Present: normal appearance. Absent: conjunctival injection - ENT ENT exam: Absent: normal exam (Bilateral nasal mucosal edema along with turbinate swelling bilaterally.), normal orophraynx (Erythema to posterior oropharynx) - Expanded ENT Exam Expanded Throat exam: Positive: tonsillar erythema. Negative: tonsillomegaly, tonsillar exudate, R peritonsillar mass, L peritonsillar mass - Neck Neck exam: Present: normal inspection, full ROM. Absent: lymphadenopathy - Respiratory Respiratory exam: Present: normal lung sounds bilaterally. Absent: respiratory distress, wheezes, rales, rhonchi, stridor, chest wall tenderness - Cardiovascular Cardiovascular Exam: Present: regular rate, normal heart sounds - GI/Abdominal GI/Abdominal exam: Present: soft, normal bowel sounds. Absent: distended, tenderness, guarding, rebound, rigid - Extremities Exam Extremities exam: Present: normal inspection, normal capillary refill - Back Exam Back exam: Present: normal inspection. Absent: CVA tenderness (R), CVA tendern ess (L) - Neurological Exam Neurological exam: Present: alert, oriented X3, normal gait - Psychiatric Psychiatric exam: Present: normal affect, normal mood - Skin Skin exam: Present: warm, dry, intact, normal color ED Course Vital Signs 06/02/21 06/02/21 17:56 18:29 Temperature 98.0 F 98.0 F Pulse Rate 73 80 Respiratory 20 20 Rate Blood Pressure 122/85 Blood Pressure 124/85 [Left] O2 Sat by Pulse 98 99 Oximetry ED Medical Decision Making - Medical Decision Making 31-year-old black female with no past medical history presents to the emergency department for evaluation of 2 to 3-day history of sore throat. States that she has also had runny nose and congestion but denies fever, shortness of breath, and chest pain. She denies any sick contacts Exam consistent with sinusitis. Patient advised to use blax-yrg-[id number] Claritin or Zyrtec as needed for symptoms. She is advised to increase oral fluid intake and follow-up with primary care provider if no improvement or worsening symptoms. She verbalized understanding of and agreement with plan of care. Critical care attestation.: If time is entered above; I have spent that time in minutes in the direct care of this critically ill patient, excluding procedure time. ED Disposition Clinical Impression: Sinusitis Qualifiers: Sinusitis location: frontal Chronicity: acute Recurrence: non-recurrent Qualified Code(s): J01.10 - Acute frontal sinusitis, unspecified Disposition: 01 HOME / SELF CARE / HOMELESS Is pt being admited?: No Does the pt Need Aspirin: No Condition: Stable Instructions: Sinusitis, Adult, [id number] Additional Instructions: Try jqdn-eds-yadchej sinus medication. Increase noncaffeinated fluid intake. Follow-up with primary care provider if no improvement or worsening symptoms. Referrals: DINESH FIGUEROA MD [Referring] - 3-5 Days Time of Disposition: 19:04
== END 2021-06-03 08:08 | disposition home or self-care (01) ==
LOC: ED 17:43
DX: J32.9 Chronic sinusitis, unspecified (principal); Z79.899 Other long term (current) drug therapy
CPT/HCPCS: 99282

== ENCOUNTER 2021-09-24 08:53 | Emergency (ER) | payer MEDICAID ==
--- NOTE | 2021-09-24 10:07 | Emergency Department Report ---
ED General Adult HPI - General Chief complaint: Urogenital-Female Stated complaint: BREAST SORENESS WITH HIVES/ENITRE LEFT SIDE SORE Time Seen by Provider: 09/24/21 09:43 Source: patient Mode of arrival: Ambulatory Limitations: No Limitations - History of Present Illness Initial comments: 31-year-old female no significant past medical history reports to the ER with 1 week of rash to her left breast that has been painful with small vesicles. Patient reports trying kffe-amv-dbscxnx cortisone cream and Benadryl with no relief. Patient assumed the pain was due to breast-feeding initially until rash appeared. Patient reports increased tenderness with palpation or heavy clothing. No other acute symptoms reported at this time. Severity scale (0 -10): 6 - Related Data Home Medications Medication Instructions Recorded Confirmed Last Taken valACYclovir [Valtrex] 1 tab PO DAILY 08/10/18 06/02/21 08/10/18 One Daily Tablet 1 caplet PO QDAY 08/17/18 06/02/21 1 Day Ago ~08/17/18 1 tab Previous Rx's Medication Instructions Recorded Last Taken Type HYDROcodone/APAP 5-325 [Cropsey 1 each PO Q6HR PRN 3 Days #10 09/24/21 Unknown Rx 5-325 mg TAB] tablet Valacyclovir HCl [Valacyclovir] 1,000 mg PO TID 7 Days #21 tab 09/24/21 Unknown Rx Allergies Allergy/AdvReac Type Severity Reaction Status Date / Time No Known Allergies Allergy Verified 06/02/21 18:31 ED Review of Systems ROS: Stated complaint: BREAST SORENESS WITH HIVES/ENITRE LEFT SIDE SORE Other details as noted in HPI Comment: All other systems reviewed and negative Skin: rash, lesions ED Past Medical Hx - Past Medical History Previous Medical History?: No Hx Hypertension: No Hx Heart Attack/AMI: No Hx Congestive Heart Failure: No Hx Diabetes: No Hx Deep Vein Thrombosis: No Hx Liver Disease: No Hx Renal Disease: No Hx Sickle Cell Disease: No Hx Seizures: No Hx Asthma: No Hx COPD: No Hx HIV: No Additional medical history: Vaginal delivery x 1 - Surgical History Past Surgical History?: No - Social History Smoking Status: Never Smoker Substance Use Type: Alcohol - Medications Home Medications: Home Medications Medication Instructions Recorded Confirmed Last Taken Type valACYclovir [Valtrex] 1 tab PO DAILY 08/10/18 06/02/2119 History One Daily Tablet 1 caplet PO QDAY 08/17/18 06/02/21 1 Day Ago History ~08/17/18 1 tab HYDROcodone/APAP 5-325 [Cropsey 1 each PO Q6HR PRN 3 Days #10 09/24/21 Unknown Rx 5-325 mg TAB] tablet Valacyclovir HCl [Valacyclovir] 1,000 mg PO TID 7 Days #21 tab 09/24/21 Unknown Rx ED Physical Exam - General Limitations: No Limitations General appearance: alert, in no apparent distress - Head Head exam: Present: atraumatic, normocephalic - Eye Eye exam: Present: normal appearance - ENT ENT exam: Present: mucous membranes moist - Neck Neck exam: Present: normal inspection - Respiratory Respiratory exam: Present: normal lung sounds bilaterally. Absent: respiratory distress - Cardiovascular Cardiovascular Exam: Present: regular rate, normal rhythm. Absent: systolic murmur, diastolic murmur, rubs, gallop - GI/Abdominal GI/Abdominal exam: Present: soft, normal bowel sounds - Extremities Exam Extremities exam: Present: normal inspection - Back Exam Back exam: Present: normal inspection - Neurological Exam Neurological exam: Present: alert, oriented X3 - Psychiatric Psychiatric exam: Present: normal affect, normal mood - Skin Skin exam: Present: warm, dry, intact, normal color, rash (Left breast), vesicles (Left breast) ED Course Vital Signs 09/24/21 09/24/21 09/24/21 09:03 09:46 10:22 Temperature 98.2 F 98.2 F 98.0 F Pulse Rate 69 69 70 Respiratory 20 20 18 Rate Blood Pressure 112/83 Blood Pressure 112/83 110/80 [Right] O2 Sat by Pulse 94 100 100 Oximetry ED Medical Decision Making - Medical Decision Making 31-year-old female no significant past medical history reports to the ER with 1 week of rash to her left breast that has been painful with small vesicles. Patient reports trying hcon-uvs-uzowuol cortisone cream and Benadryl with no relief. Patient assumed the pain was due to breast-feeding initially until rash appeared. Patient reports increased tenderness with palpation or heavy clothing. No other acute symptoms reported at this time. Vesicular rash noted to the left breast as it moves towards her left arm. Tenderness is noted with palpation at the site of the rash. No streaking no clinical signs of abscess. No cellulitis noted. Based off clinical presentation and patient description. Patient has shingles to the left breast. Patient updated on clinical diagnosis. Patient to be started on valacyclovir 1000 mg 3 times a day for 7 days. Patient also sent home with oral analgesics to help with pain. Patient agrees with plan of care verbalizes understanding. Patient informed to follow her primary care provider as needed. Patient informed if symptoms are to get worse to report back to ED. Patient verbalized understanding. Vital Signs 09/24/21 09/24/21 09/24/21 09:03 09:46 10:22 Temperature 98.2 F 98.2 F 98.0 F Pulse Rate 69 69 70 Respiratory 20 20 18 Rate Blood Pressure 112/83 Blood Pressure 112/83 110/80 [Right] O2 Sat by Pulse 94 100 100 Oximetry Critical care attestation.: If time is entered above; I have spent that time in minutes in the direct care of this critically ill patient, excluding procedure time. ED Disposition Clinical Impression: Breast pain, left Shingles Qualifiers: Herpes zoster complications: without complications Qualified Code(s): B02.9 - Zoster without complications Disposition: 01 HOME / SELF CARE / HOMELESS Is pt being admited?: No Condition: Stable Instructions: Shingles, Neuropathic Pain, Nonspecific Chest Pain, Adult Prescriptions: HYDROcodone/APAP 5-325 [Cropsey 5-325 mg TAB] 1 each PO Q6HR PRN 3 Days #10 tablet PRN Reason: Pain Valacyclovir HCl [Valacyclovir] 1,000 mg PO TID 7 Days #21 tab Referrals: ABEBE SIMS MD [Primary Care Provider] - 3-5 Days
[2021-09-24 10:23] VITALS: BP 110/80
== END 2021-09-24 10:23 | disposition home or self-care (01) ==
LOC: ED 08:53
DX: N64.4 Mastodynia (principal); B02.9 Zoster without complications
CPT/HCPCS: 99282